=== PATIENT | male | born 1945 | race Caucasian/White ===

== ENCOUNTER 2016-06-27 11:20 | Day surgery (SDC) | payer MEDICARE, OTHER ==
--- NOTE | ~2016-06-27 | EGD ---
EGD REPORT [facility] [address] 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 Procedure: Pre-Anesthesia Assessment: - ASA Grade Assessment: III - A patient with severe systemic disease. After obtaining informed consent, the endoscope was passed under direct vision. Throughout the procedure, the patient's blood pressure, pulse, and oxygen saturations were monitored continuously. The Endoscope was introduced through the mouth, and advanced to the second part of duodenum. The upper GI endoscopy was accomplished without difficulty. The patient tolerated the procedure well. Findings: The esophagus and gastroesophageal junction were examined with white light. 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 Circumferential salmon-colored mucosa was present from 35 to 38 cm. The maximum longitudinal extent of these esophageal mucosal changes was 4 cm in length. Mucosa was biopsied with a cold forceps for histology in 4 quadrants at intervals of 2 cm at 36 cm from the incisors and at 38 cm from the incisors. There were some squamous islands noted in the segment between 35 to 38 cm. The esophagus and gastroesophageal junction were examined with white light. 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 One tongue of salmon-colored mucosa was present from 34 to 35 cm. The maximum longitudinal extent of these esophageal mucosal changes was 4 cm in length. Mucosa was biopsied with a cold forceps for histology. A small hiatus hernia was present. Few non-bleeding superficial gastric ulcers with no stigmata of bleeding EGD REPORT [address] [place]. [address] NAME: MIGUELITO DINH : [birth year] STATUS : REG [facility] [place] PAT#: [id number] AGE: 70 ADM/REG DATE : 06/27/16 MR#: [id number] REPORT SERV DATE: 06/27/16 DICTATED BY: LANDON BEARD DATE: 06/27/16 REPORT STATUS : Draft TRANSCRIBED BY: [employer] DATE: 06/27/16 were found in the gastric antrum. The largest lesion was 3 mm in largest dimension. Biopsies were taken with a cold forceps for histology. The duodenal bulb and 2nd part of the duodenum were normal. 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 Biopsied. 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 Biopsied. - Hiatus hernia. - Gastric ulcers with clean base. Biopsied. - Normal duodenal bulb and 2nd part of the duodenum. Recommendation: - Patient has a contact number available for emergencies. The signs and symptoms of potential delayed complications were discussed with the patient. Return to normal activities tomorrow. Written discharge instructions were provided to the patient. - Regular diet. - Continue present medications. - Await pathology results. - Repeat the upper endoscopy in 3 years for surveillance. - Follow an antireflux regimen. - Return to GI clinic in 1 year. Procedure Code(s): --- Professional --- 96915, Esophagogastroduodenoscopy, flexible, transoral; with biopsy, single or multiple Diagnosis Code(s): --- Professional --- K22.70, Barnhart's esophagus without dysplasia K44.9, Diaphragmatic hernia without obstruction or gangrene K25.9, Gastric ulcer, unspecified as acute or chronic, without hemorrhage or perforation K21.9, Gastro-esophageal reflux disease without esophagitis CPT copyright 2013 [employer]. All rights reserved. The codes documented in this report are preliminary and upon genetic counselor review may be revised to meet current compliance requirements. LANDON BEARD MD 06/27/2016 2:33 PM This report has been signed electronically. EGD REPORT [facility] [address] [place]. [address] NAME: MIGUELITO DINH : [birth year] STATUS : REG [facility] [place] PAT#: [id number] AGE: 70 ADM/REG DATE : 06/27/16 MR#: [id number] REPORT SERV DATE: 06/27/16 DICTATED BY: LANDON BEARD DATE: 06/27/16 REPORT STATUS : Draft TRANSCRIBED BY: [employer] DATE: 06/27/16 Number of Addenda: 0 Note Initiated On: 06/27/2016 1:18 PM Scope Withdrawal Time 0 hours 0 minutes 0 seconds [address] [facility] [place] [address]
[~2016-06-27 11:20] MED LIST: ADVIL PO; AMARYL2 PO; ASAB PO; CIP5 PO; EXFORGE1 TAB PO; FISH-EPA1000 MG PO; FLOMAX4 PO; GLUCOPHAGE1000 MG PO; LEVEMIR SC; LOTENSIN HCT1 TA2 PO; NORV5 PO; PROSCAR5 PO; PROTONIX PO; VOLT75 PO; ZOL50 PO
== END 2016-06-27 23:59 | disposition home or self-care (01) ==
LOC: DMU 11:20
PROVIDERS: Internal Medicine Gastroenterology
PROC: 0DB58ZX Excision of Esophagus, Via Natural or Artificial Opening Endoscopic, Diagnostic (ICD-10-PCS; 2016-06-27)
PROC: 0DB78ZX Excision of Stomach, Pylorus, Via Natural or Artificial Opening Endoscopic, Diagnostic (ICD-10-PCS; principal; 2016-06-27 12:30)
DX: K22.70 Barrett's esophagus without dysplasia (principal); K44.9 Diaphragmatic hernia without obstruction or gangrene; K21.9 Gastro-esophageal reflux disease without esophagitis; I10 Essential (primary) hypertension; E11.9 Type 2 diabetes mellitus without complications; R00.1 Bradycardia, unspecified; Z79.899 Other long term (current) drug therapy; Z79.82 Long term (current) use of aspirin
CPT/HCPCS: 82962; 88305; 88342